=== PATIENT | male | born 1975 | race Caucasian/White ===

== ENCOUNTER → 2016-12-21 | Outpatient (CLI) | payer BC ==
[~2016-12-21] MED LIST: LORA10TA44 PO; PARO1TAB27 PO
== END | disposition home or self-care (01) ==
LOC: C.PATHSPEC 18:00
PROVIDERS: ATTEND Urology
DX: Z30.2 Encounter for sterilization (principal)

== ENCOUNTER → 2017-06-01 | Outpatient (CLI) | payer BC ==
[~2017-06-01] MED LIST changes: +OPTIRAY 320 IV PRN
--- NOTE | 2017-06-01 15:13 | DIAGNOSTIC IMAGING REPORT ---
SOFT TISSUE NECK WITH HISTORY:42 [id number] Mass of right side of neck . This is a follow-up exam. COMPARISON: Soft tissue neck CT 01/25/2014 TECHNIQUE: Multiple axial CT images of the soft tissues of the neck were obtained following the intravenous administration of 93 mL Optiray 320. FINDINGS: There is mild enlargement of the adenoid tonsils. Multiple prominent tonsillar crypts are seen within the moderately enlarged palatine tonsils. These changes cause moderate narrowing of the oropharynx. No drainable collection or mass is identified. The epiglottis and pericolonic fat appears normal. The vocal cords are symmetric. Note is made of a multinodular thyroid enhancing lesion of the left thyroid measuring 2.0 x 2.1 cm. This appears to have enlarged from prior exam. There are multiple prominent and enlarged cervical chain lymph nodes bilaterally with level 2 lymph node on the right measuring up to 2.4 x 1.7 cm on image 64 of the axial series. Supraclavicular adenopathy on the right is seen measuring 2.0 x 1.4 cm and the left measuring 1.7 x 1.4 cm. Additional nodes are seen extending into the superior mediastinum pretracheal space measuring up to 2.0 x 1.7 cm. The parotid, sublingual and submandibular glands appear normal. The region intracranial structures appear unremarkable. The imaged upper lung baird are clear. 9 x 6 mm sclerotic focus of the T1 vertebral segment is unchanged suggesting degenerative changes. IMPRESSION: 1. Bilateral cervical chain, supraclavicular and upper mediastinal adenopathy is new from prior exam and is nonspecific. These appear abnormally enlarged for normal physiologic changes and metastatic disease or lymphoproliferative disorder would be differential considerations. Close follow-up and possible tissue sampling recommended. 2. Multinodular thyroid with enlarging enhancing left thyroid nodule measuring up to 2.1 cm. Further evaluation with dedicated thyroid ultrasound is advised. 3. Adenoid and palatine tonsillar enlargement causes moderate narrowing of the oropharynx. No focal mass or drainable peritonsillar collection. The above report was generated using voice recognition software. It may contain grammatical, syntax or spelling errors. Electronically signed by: James Neves M.D. 06/01/2017 3:12 PM Dictated Date/Time: 06/01/2017 3:00 PM
== END | disposition home or self-care (01) ==
LOC: C.CTS 14:43
PROVIDERS: ATTEND Physician Assistant Medical
DX: R22.1 Localized swelling, mass and lump, neck (principal)

== ENCOUNTER → 2017-06-07 | Outpatient (CLI) | payer BC ==
[~2017-06-07] MED LIST changes: -OPTIRAY 320 IV PRN
[2017-06-07 16:25] LABS: BASO % 0.4 %; BASO ABS # 0.03 K/uL (0-0.2); EOS % 4.9 %; HEMATOCRIT 41.3 % (42-52); IG% 0.2 %; LYMPH ABS # 2.67 K/uL (1.2-3.4); MEAN CELL VOLUME 82.1 fL (80-100); MEAN CORPUSCULAR HEMOGLOBIN 27.4 pg (25-34); MEAN CORPUSCULAR HGB CONC 33.4 g/dl (32-36); MONO % 6.2 %; NEUT % 55.3 %; PLATELET COUNT 263 K/uL (130-400); RED BLOOD COUNT 5.03 M/uL (4.7-6.1); WHITE BLOOD COUNT 8.09 K/uL (4.8-10.8)
[2017-06-07 16:35] LABS: ALT/SGPT 37 U/L (12-78); BLOOD UREA NITROGEN 14 mg/dl (7-18); BUN/CREATININE RATIO 14.9 (10-20); CALCIUM 8.7 mg/dl (8.5-10.1); CARBON DIOXIDE 26 mmol/L (21-32); CHLORIDE 107 mmol/L (98-107); CREATININE 0.91 mg/dl (0.60-1.40); GLUCOSE 92 mg/dl (70-99); POTASSIUM 3.7 mmol/L (3.5-5.1); SODIUM 139 mmol/L (136-145)
[2017-06-07 16:45] LABS: ALB/GLOB RATIO 0.9 (0.9-2); ALKALINE PHOSPHATASE 63 U/L (45-117); AST/SGOT 23 U/L (15-37)
[2017-06-08 14:16] LABS: COMPLETE YES
== END | disposition home or self-care (01) ==
LOC: C.LABBFT 16:33
PROVIDERS: ATTEND Physician Assistant Medical
DX: R59.0 Localized enlarged lymph nodes (principal)

== ENCOUNTER → 2017-06-08 | Outpatient (CLI) | payer BC ==
--- NOTE | 2017-06-08 14:20 | DIAGNOSTIC IMAGING REPORT ---
ULTRASOUND GUIDED FINE NEEDLE ASPIRATION OF BILATERAL THYROID NODULES AND RIGHT LEVEL 2 CERVICAL LYMPH NODE CLINICAL HISTORY: Thyroid nodules and cervical lymphadenopathy. COMPARISON STUDY: Neck CT June 01, 2017 and thyroid and neck ultrasound June 08, 2017. PROCEDURE: Sonography of the thyroid gland demonstrated an ill-defined 2.5 cm hypoechoic right lobe nodule with suspected microcalcifications. Note was made of a well-circumscribed 2.5 cm left lobe nodule. In addition, there were multiple pathologically enlarged cervical lymph nodes within index right level 2 lymph node measuring 2.6 cm. These 2 thyroid nodules and the right level 2 lymph node were targeted for fine needle aspiration. The procedure, risks and benefits were discussed with the patient and informed written consent was obtained. The procedure was performed by Dr. Henning following a timeout. Skin of the neck was prepped and draped in sterile fashion and local anesthesia was achieved with 1% lidocaine. Under direct ultrasound guidance, two 25-gauge fine needle aspirations were performed in each thyroid nodule as well as one 25-gauge fine needle aspiration of the right level 2 cervical lymph node. The samples were deemed preliminarily adequate by pathology. The patient tolerated the procedure well and no immediate complications were evident. IMPRESSION: Ultrasound guided fine needle aspiration of bilateral thyroid nodules and right level 2 cervical lymph node. Electronically signed by: Jairo Henning M.D. 06/08/2017 2:18 PM Dictated Date/Time: 06/08/2017 2:15 PM
--- NOTE | 2017-06-08 14:21 | DIAGNOSTIC IMAGING REPORT ---
SOFT TISSUE HEAD/NECK-THYROID CLINICAL HISTORY: 42 years-old Male with MULTINODULAR THYROID. COMPARISON: CT neck 06/01/2007 TECHNIQUE: Multiple real time sonographic images of the thyroid were obtained accessing stephens scale appearance and color doppler flow. FINDINGS: MEASUREMENTS: Right lobe: 5.5 x 2.4 x 2.4 cm Left lobe: 5.0 x 2.4 x 2.4 cm Isthmus: 1.06 cm PARENCHYMA: The thyroid parenchymal echotexture is diffusely heterogeneous. NODULES: There is a heterogeneous mass with areas of decreased echogenicity and lobulated poorly defined margins in the mid right thyroid lobe, 1.5 x 2.3 x 1.8 cm with nonshadowing areas of increased echogenicity suggesting microcalcifications. No significant increased vascularity is seen within this nodule. Circumscribed slightly hypoechoic and homogeneous nodule of the mid left thyroid with areas of internal vascularity measures 2.7 x 1.9 x 1.7 cm. Multiple enlarged lymph nodes are seen within the neck. On the right, the largest lymph node is seen measuring 3.0 x 1.4 x 2.6 cm. Largest on the left measures 2.7 x 1.4 x 1.6 cm. IMPRESSION: 1. Multinodular thyroid with suspicious nodule of the mid pole right thyroid lobe measuring 2.3 cm. 2. Hypoechoic homogeneous and circumscribed nodule of the mid left thyroid measures 2.7 cm. 3. Enlarged bilateral cervical chain adenopathy. Please see pathology results from ultrasound-guided FNA of same day. The above report was generated using voice recognition software. It may contain grammatical, syntax or spelling errors. Electronically signed by: James Neves M.D. 06/08/2017 2:20 PM Dictated Date/Time: 06/08/2017 2:10 PM
== END | disposition home or self-care (01) ==
LOC: C.ULTR 12:12
PROVIDERS: ATTEND Physician Assistant Medical
DX: C73 Malignant neoplasm of thyroid gland (principal); C77.0 Secondary and unspecified malignant neoplasm of lymph nodes of head, face and neck; E04.2 Nontoxic multinodular goiter

== ENCOUNTER → 2018-01-17 | Outpatient (CLI) | payer BC | END | disposition home or self-care (01) | LOC: C.LABPVFM 10:13 | PROVIDERS: ATTEND Psychiatry & Neurology Psychiatry | DX: Z79.899 Other long term (current) drug therapy (principal) ==

== ENCOUNTER → 2018-01-18 | Outpatient (CLI) | payer BC | END | disposition home or self-care (01) | LOC: C.LABSPEC 10:10 | PROVIDERS: ATTEND Physician Assistant Medical | DX: J02.9 Acute pharyngitis, unspecified (principal) ==

== ENCOUNTER → 2018-03-11 | Outpatient (CLI) | payer BC ==
[2018-03-11 13:20] LABS: ALBUMIN 3.5 gm/dl (3.4-5.0); ALT/SGPT 29 U/L (12-78); AST/SGOT 18 U/L (15-37); BLOOD UREA NITROGEN 11 mg/dl (7-18); CALCIUM 7.7 mg/dl (8.5-10.1); CARBON DIOXIDE 28 mmol/L (21-32); CHOLESTEROL 189 mg/dl (0-200); CREATININE 0.77 mg/dl (0.60-1.40); GLUCOSE 89 mg/dl (70-99); POTASSIUM 3.4 mmol/L (3.5-5.1); SODIUM 138 mmol/L (136-145)
[2018-03-11 13:30] LABS: ALKALINE PHOSPHATASE 77 U/L (45-117); LDL CHOLESTEROL CALCULATED 136 mg/dl; TOTAL PROTEIN 7.9 gm/dl (6.4-8.2)
== END | disposition home or self-care (01) ==
LOC: C.LABPVFM 08:56
PROVIDERS: ATTEND Family Medicine
DX: E78.5 Hyperlipidemia, unspecified (principal)

== ENCOUNTER → 2018-03-29 | Outpatient (CLI) | payer BC ==
[~2018-03-29] MED LIST changes: +NURSING VERBAL MED ORDER ONE; +OPTIRAY 320 IV PRN
--- NOTE | 2018-03-29 08:57 | DIAGNOSTIC IMAGING REPORT ---
SOFT TISSUE NECK WITH CLINICAL HISTORY: 42 years-old Male presenting with HYPERLIPIDEMIA, cystic mass in the region of right neck surgery, history of thyroid cancer. TECHNIQUE: Multidetector CT of the neck was performed after the administration of intravenous contrast. IV contrast: 93 mL of Optiray 320. A dose lowering technique was used consistent with the principles of ALARA (as low as reasonably achievable). COMPARISON: 06/01/2017. CT DOSE (mGy.cm): The estimated cumulative dose is 547.20 mGy.cm. FINDINGS: Health Facilities Surveyor topogram: Unremarkable. Postsurgical changes of thyroidectomy and bilateral cervical lymph node dissection. In the right level 4 cervical region, there is an ovoid 2.1 cm thin-walled fluid collection immediately posterior to the sternocleidomastoid. No lymphadenopathy. Subcentimeter lymph nodes noted in the right supraclavicular fossa (series 3 image 347). No additional fluid collection or soft tissue abnormality along the bilateral neck incision sites. Vasculature patent. Mild mucosal thickening in the right sphenoid sinus. Paranasal sinuses and mastoid air cells otherwise clear. Orbits normal. Limited intracranial evaluation within normal limits. No suspicious nodularity along the airway. Lung apices clear. Osseous structures within normal limits. IMPRESSION: 1. 2.1 cm fluid collection in the right level 4 cervical region, which is most suggestive of a seroma. This is felt unlikely represent necrotic lymph node given the thin wall and previously noted hyperenhancing solid lymphadenopathy. 2. Post surgical changes of bilateral lymph node dissection and thyroidectomy. No pathologically enlarged or suspicious lymph nodes. Electronically signed by: Rickie Tran M.D. 03/29/2018 8:55 AM Dictated Date/Time: 03/29/2018 8:45 AM
== END | disposition home or self-care (01) ==
LOC: C.CTS 07:50
PROVIDERS: ATTEND Family Medicine
DX: R22.1 Localized swelling, mass and lump, neck (principal); E78.5 Hyperlipidemia, unspecified; Z85.850 Personal history of malignant neoplasm of thyroid

== ENCOUNTER → 2018-06-05 | Outpatient (CLI) | payer BC ==
[~2018-06-05] MED LIST changes: -NURSING VERBAL MED ORDER ONE; -OPTIRAY 320 IV PRN
[2018-06-05 13:15] LABS: ALBUMIN 3.4 gm/dl (3.4-5.0); ALKALINE PHOSPHATASE 69 U/L (45-117); ALT/SGPT 62 U/L (12-78); AST/SGOT 36 U/L (15-37); BLOOD UREA NITROGEN 9 mg/dl (7-18); CALCIUM 8.2 mg/dl (8.5-10.1); CARBON DIOXIDE 28 mmol/L (21-32); CHOLESTEROL 233 mg/dl (0-200); CREATININE 0.79 mg/dl (0.60-1.40); GLUCOSE 87 mg/dl (70-99); LDL CHOLESTEROL CALCULATED 156 mg/dl; POTASSIUM 3.6 mmol/L (3.5-5.1); SODIUM 140 mmol/L (136-145); TOTAL PROTEIN 7.5 gm/dl (6.4-8.2)
== END | disposition home or self-care (01) ==
LOC: C.LABPVFM 07:01
PROVIDERS: ATTEND Family Medicine
DX: C73 Malignant neoplasm of thyroid gland (principal)

== ENCOUNTER → 2018-06-12 | Outpatient (CLI) | payer BC ==
--- NOTE | 2018-06-12 13:33 | DIAGNOSTIC IMAGING REPORT ---
PET/CT SKULL-THIGH HISTORY: Thyroid carcinoma THYROID CANCER TECHNIQUE: PET/CT was performed from the base of the skull through the pelvis following the intravenous administration of 14.8 mCi of F18-FDG. Non-contrast CT imaging was performed over the same range without breath-hold for attenuation correction of PET images and anatomic correlation, but not for primary interpretation as it is not of standard diagnostic quality. CT DOSE: COMPARISON: CT soft tissue neck 03/29/2018 FINDINGS: HEAD AND NECK: Operative changes consistent with a bilateral cervical lymph node dissection and thyroidectomy. 2 cm metabolically active somewhat poorly defined nodule posterior to the medial head right clavicle. This has a SUV characteristics of 7. Remainder the soft tissue neck is unremarkable. CHEST: There is no FDG-avid disease in the chest. There is no axillary, mediastinal, or hilar lymphadenopathy. There is no pleural or pericardial effusion. There is no air-space disease or suspicious lung nodule. ABDOMEN/PELVIS: Below the diaphragm, tracer is distributed physiologically in the gastrointestinal and genitourinary tracts. There is no significant lymphadenopathy and no FDG-avid disease. MUSCULOSKELETAL: There is no FDG-avid or destructive bone lesion. IMPRESSION: 1. 2 cm metabolically active node/nodule immediately posterior to the medial aspect of the right clavicular head. 2. A metastatic focus is considered.. 3. Operative changes consistent with a prior thyroidectomy and lymph node dissection the soft tissue neck. 4. Remainder the PET scan is negative. The above report was generated using voice recognition software. It may contain grammatical, syntax or spelling errors. Electronically signed by: Miguel Angel Hicks M.D. 06/12/2018 1:31 PM Dictated Date/Time: 06/12/2018 1:22 PM
== END | disposition home or self-care (01) ==
LOC: C.PET 11:00
PROVIDERS: ATTEND Internal Medicine Endocrinology, Diabetes & Metabolism
DX: C73 Malignant neoplasm of thyroid gland (principal); C79.89 Secondary malignant neoplasm of other specified sites

== ENCOUNTER 2023-07-24 05:51 | Observation (INO) ==
--- NOTE | 2023-07-03 16:20 | PAT Medication Instructions ---
Medication Instructions Date of Service July 03, 2023 Home Medications Medication Instructions Recorded Auto Titrating CPAP See Rx Instructions .Route 08/11/21 .COMPLEX #1 ea atorvastatin 40 mg tablet 40 mg PO HS #90 tabs 04/02/23 aspirin 81 mg tablet,delayed release (Viktor Low Dose Aspirin) 81 mg PO HS calcium carbonate 600 mg-vitamin D3 5 mcg (200 unit) tablet (Calcium 600 + D(3)) 1 tab PO BID fluticasone propionate 50 mcg/actuation nasal spray,suspension (Flonase Allergy Relief) 2 spray intranasal DAILY PRN Allergy Symptoms zinc 50 mg tablet 50 mg PO QAM levothyroxine 150 mcg tablet 150 mcg PO QAM cholecalciferol (vitamin D3) 25 mcg (1,000 unit) capsule 25 mcg PO QPM sertraline 100 mg tablet 300 mg PO HS atorvastatin 40 mg tablet 40 mg PO HS buspirone 30 mg tablet 30 mg PO BID ASK your prescriber and surgeon aspirin 81 mg tablet,delayed release (Viktor Low Dose Aspirin) 81 mg PO HS DO NOT take the morning of surgery calcium carbonate 600 mg-vitamin D3 5 mcg (200 unit) tablet (Calcium 600 + D(3)) 1 tab PO BID zinc 50 mg tablet 50 mg PO QAM Take morning of surgery With a small sip of water, OTHERWISE NOTHING TO EAT OR DRINK AFTER MIDNIGHT: fluticasone propionate 50 mcg/actuation nasal spray,suspension (Flonase Allergy Relief) 2 spray intranasal DAILY PRN Allergy Symptoms (if needed) levothyroxine 150 mcg tablet 150 mcg PO QAM buspirone 30 mg tablet 30 mg PO BID Take evening before surgery calcium carbonate 600 mg-vitamin D3 5 mcg (200 unit) tablet (Calcium 600 + D(3)) 1 tab PO BID fluticasone propionate 50 mcg/actuation nasal spray,suspension (Flonase Allergy Relief) 2 spray intranasal DAILY PRN Allergy Symptoms (if needed) cholecalciferol (vitamin D3) 25 mcg (1,000 unit) capsule 25 mcg PO QPM sertraline 100 mg tablet 300 mg PO HS atorvastatin 40 mg tablet 40 mg PO HS buspirone 30 mg tablet 30 mg PO BID Other Notes If you have any questions please call us at [phone] or [phone] or [phone] or [phone]
--- NOTE | 2023-07-06 11:45 | Anesthesiology Consultation ---
Date of Service July 06, 2023 Assessment & Plan (1) Encounter for pre-operative examination: - COVID screening: Per assessment on 07/06: No known COVID-19 positive contacts or current COVID-19 related symptoms. No recent Covid positive test result. - S/P Left cubital tunnel release (11/09/22): LMA#5 at [facility] Chart Review Chart Review: Acceptable Risk for Surgery and Patient seen in Pre Admission Testing Teaching & Discussion Pre-Anesthesia Teaching/Discussion Notes: Instructed NPO after midnight before surgery,except medications with 15 cc of water. Medication instructions provided according to the PAT guidelines. History Surgery Operation Date: 07/24/23 07:15 Proposed Procedures p C4-C5, C5-C6 Cervical Disc Arthroplasty - Matty Carrillo MD Height/Weight Height: 5 ft 9 in Weight: 97.4 kg Allergies Allergy/AdvReac Type Severity Reaction Status Date / Time Iodinated Contrast Media Allergy Mild Rash Verified 06/29/23 15:25 Medications Home Medications Medication Instructions Recorded Confirmed Last Taken aspirin 81 mg tablet,delayed 81 mg PO HS 03/30/19 06/29/23 11/05/22 19:00 release (Viktor Low Dose Aspirin) calcium carbonate 600 mg-vitamin 1 tab PO BID 03/30/19 06/29/23 11/08/22 19:00 D3 5 mcg (200 unit) tablet (Calcium 600 + D(3)) fluticasone propionate 50 2 spray intranasal DAILY PRN 03/30/19 06/29/23 09/04/22 mcg/actuation nasal Allergy Symptoms spray,suspension (Flonase Allergy Relief) Auto Titrating CPAP See Rx Instructions .Route 08/11/21 05/30/23 11/08/22 21:00 .COMPLEX #1 ea zinc 50 mg tablet 50 mg PO QAM 08/11/21 06/29/23 11/08/22 19:00 levothyroxine 150 mcg tablet 150 mcg PO QAM 08/30/22 06/29/23 11/09/22 04:00 cholecalciferol (vitamin D3) 25 25 mcg PO QPM 09/27/22 06/29/23 11/08/22 19:00 mcg (1,000 unit) capsule sertraline 100 mg tablet 300 mg PO HS 09/27/22 06/29/23 11/08/22 19:00 atorvastatin 40 mg tablet 40 mg PO HS #90 tabs 04/02/23 06/29/23 Unknown buspirone 30 mg tablet 30 mg PO BID 06/29/23 06/29/23 Unknown Past Medical History Medical History Anxiety and depression Arthritis Borderline high cholesterol History of COVID-2019, "resolved" Hx of radioactive iodine thyroid ablation Hx of thyroid cancer Hypothyroidism OCD (obsessive compulsive disorder) Sleep apnea CPAP (compliant) Exercise / Class Metabolic Activity II 4-5 Yardwork/Stairs/Walk up hill Past Family History Family History Mother Ovarian cancer Family history of diabetes mellitus Other No family history of adverse response to anesthesia Denies family history of Prostate cancer Myocardial infarction Breast cancer Colorectal cancer Past Surgical History Surgical History History of anesthesia reaction woke up combative with one procedure History of carpal tunnel surgery right History of cholecystectomy History of colonoscopy History of thyroidectomy, total Hx of vasectomy S/P cubital tunnel release Left cubital tunnel release (11/09/22): LMA#5 at [facility] [place] teeth removed Past Anesthesia History No Family Hx of Anesthesia Complications and Other (woke up combative with one procedure, no similar issues with other surgeries/anesthesia) History of PONV No Hx of PONV and Hx of Motion Sickness (Mild) Social History Smoking Status: Former smoker tobacco type: cigarettes Do You Dip or Chew Tobacco: No Smoking End Date: At age 39 Hx Alcohol Use: Yes Alcohol type: beer alcohol intake frequency: a few times a month substance use type: does not use Review of Systems Patient denies chest pain, shortness of breath, dyspnea on exertion, fever, chills, cough, wheezing, palpitations. Physical Exam Vital Signs VITALS BP 105/71 P 59 TEMP 97.7 SP02 96%RA RESP 16 PHYSICAL Mildly decreased cervical extension range of motion. Full TMJ range of motion. TMD 4 finger breaths Mallampati Score 1 Dentition: intact Lungs: clear throughout to auscultation Cardiac: regular rate and rhythm, no murmurs noted Spine: normal Carotid arteries: negative bruit Extremities: no LE edema Lab Results Anesthesia Preop Results Results Anesthesia Widget: WBC 7.94 K/ul (4.8-10.8) 07/06/23 Hgb 14.0 g/dl (14.0-18.0) 07/06/23 Hct 41.9 % (42.0-52.0) L 07/06/23 Plt 221 K/uL (130-400) 07/06/23 Na 140 mmol/L (136-145) 07/06/23 K 3.9 mmol/L (3.5-5.1) 07/06/23 Cl 105 mmol/L (98-107) 07/06/23 CO2 30 mmol/L (21-32) 07/06/23 BUN 10 mg/dl (6-23) 07/06/23 Creat 0.71 mg/dl (0.6-1.4) 07/06/23 Glucose Level 87 mg/dl (70-99(Fasting)) 07/06/23 PT 10.5 Seconds (9.0-12.0) 07/06/23 PTT 26.4 Seconds (21.0-31.0) 07/06/23 INR 1.0 (0.9-1.1) 07/06/23 Blood Type A Positive 07/06/23 Antibody Screen NEGATIVE 07/06/23 Testing Electrocardiogram Date: 07/06/23 SB at 59bpm. "Otherwise normal ECG" Chest X-Ray Date: 07/06/23 FINDINGS: Cardiac mediastinal and hilar silhouettes are within normal limits. No pneumothorax, pleural effusion, airspace consolidation or pulmonary edema. Bones appear grossly intact. Surgical clips project over the neck and right upper abdomen. IMPRESSION: No acute process.
[2023-07-24] MEDS ORDERED: ceFAZolin 2000MG 2,000 MG/15 ML SYR IV SCH (06:00)
[2023-07-24] MEDS ORDERED: LR 15ML/HR IV SCH (06:00)
[2023-07-24] MEDS ORDERED: LR 60ML/HR IV SCH (06:00)
[2023-07-24] MEDS ORDERED: GELATIN SPONGE 12-7MM ONE (06:41)
[2023-07-24] MEDS ORDERED: THROMBIN 5000 UNITS KIT ONE ×2 (06:41→08:40)
[2023-07-24] MEDS ORDERED: VANCOMYCIN HCL 1000MG/20ML VIAL ONE (06:41)
[2023-07-24] MEDS ORDERED: SUCCINYLCHOLINE CHLORIDE 20 MG/ML 10 ML VIAL IV ONE (06:55)
[2023-07-24] MEDS ORDERED: fentaNYL citrate PF 100 MCG/2 ML VIAL ONE ×4 (06:55→12:57)
[2023-07-24] MEDS ORDERED: MIDAZOLAM HCL 1 MG/ML 2ML VIAL ONE (06:55)
[2023-07-24] MEDS ORDERED: LIDOCAINE 2% 2 ML VIAL/AMP(20MG/ML) INFIL ONE (06:55)
[2023-07-24] MEDS ORDERED: ROCURONIUM BROMIDE 10 MG/ML 5 ML VIAL IV ONE (06:55)
[2023-07-24] MEDS ORDERED: PROPOFOL IV EMULSION 10 MG/ML 20 ML VIAL IV ONE (06:55)
--- NOTE | 2023-07-24 07:14 | History & Physical Bridge Note ---
Date of Service July 24, 2023 History & Physical Bridge Note I have examined the patient, reviewed the History & Physical and in the interval since the performance of the History & Physical I have noted the following changes of clinical significance: no changes noted
[2023-07-24] MEDS ORDERED: ONDANSETRON INJ 2 MG/ML 2 ML VIAL IV PRN ×2 (07:17→14:31)
[2023-07-24] MEDS ORDERED: fentaNYL citrate PF 100 MCG/2 ML VIAL IV PRN (07:17)
[2023-07-24] MEDS ORDERED: ePHEDrine sulfate 50 MG/ML AMP IV PRN (07:17)
[2023-07-24] MEDS ORDERED: ATROPINE SULFATE 0.1 MG/ML 10ML SYR IV PRN (07:17)
[2023-07-24] MEDS ORDERED: PROMETHAZINE HCL 6.25 MG in SODIUM CHLORIDE 0.9% 50 ML IV PRN (07:17)
[2023-07-24] MEDS ORDERED: ePHEDrine sulfate 50 MG/5 ML SYR ONE (08:06)
[2023-07-24] MEDS ORDERED: GLYCOPYRROLATE 0.2 MG/ML VIAL ONE (10:23)
[2023-07-24] MEDS ORDERED: NEOSTIGMINE METHYLSULFATE 1 MG/ML 10ML VIAL ONE (10:23)
[2023-07-24] MEDS ORDERED: FLOSEAL HEMOSTATIC MATRIX 5ML TOP ONE (11:17)
[2023-07-24] MEDS ORDERED: ceFAZolin 330 MG/ML 1 GM VIAL ONE (11:42)
--- NOTE | 2023-07-24 13:07 | Post Operative Brief Note ---
PG Immediate Post Op with CF Date of Surgery July 24, 2023 Pre & Post Diagnosis Operation Date: 07/24/23 07:30 Pre-Op Diagnosis: Degeneration of C4-C5, C5-C6 intervertebral disc, cervical radiculopathy C5 and C6 Post-Op Diagnosis: Degeneration of C4-C5, C5-C6 intervertebral disc, cervical radiculopathy C5 and C6 I identified the patient and participated in the time-out.: Yes Procedure Operation Date: 07/24/23 07:30 Actual Procedures p C4-C5, C5-C6 Cervical Disc Arthroplasty(Not Applicable) - Matty Carrillo MD Surgeon Matty Carrillo MD Cardiovascular Or Nurse none Estimated Blood Loss 30 Findings Consistent with Post-Op Diagnosis Specimens Specimen Description: no specimen Drains Michaud Catheter (inserted on 1st attempt without difficulty, return urine noted in tubing prior to inflating balloon)
--- NOTE | 2023-07-24 13:55 | Fluoroscopy Report ---
FL cervical 2-3V CLINICAL HISTORY: ACDF C4-C6 COMPARISON STUDY: MRI cervical spine 06/05/2023 FLUOROSCOPY TIME: 1 minute and 16.5 seconds FLUOROSCOPY IMAGES: 11 EXPOSURE DOSE: 29.082 mGy FINDINGS: Endotracheal tube is noted. Numerous surgical clips project over the neck soft tissues. And intervertebral disc spacers are placed at the C4-C5 and C5-C6 levels. Alignment appears satisfactory . No unexpected opaque foreign bodies identified. IMPRESSION: Fluoroscopic assistance as above. ACT 112: Negative or not required by law. Electronically signed by: Neno Neves M.D. 07/24/2023 1:53 PM
[2023-07-24] MEDS ORDERED: LACTATED RINGER'S 1,000 ML IV SCH (14:31)
[2023-07-24] MEDS ORDERED: PROMETHAZINE HCL 12.5 MG in SODIUM CHLORIDE 0.9% 50 ML IV PRN (14:31)
[2023-07-24] MEDS ORDERED: ALUMINUM/MAGNESIUM SUSP 30 ML UDC PO PRN (14:31)
[2023-07-24] MEDS ORDERED: DO NOT ADMINISTER FLU VACCINE PRN (14:31)
[2023-07-24] MEDS ORDERED: oxyCODONE/ACETAMINOPHEN 5mg/325mg TAB PO PRN (14:31)
[2023-07-24] MEDS ORDERED: ACETAMINOPHEN 1,000 MG/100 ML VIAL IV PRN (14:31)
[2023-07-24] MEDS ORDERED: hydrOXYzine HCl 25 MG TAB PO PRN (14:31)
[2023-07-24] MEDS ORDERED: DO NOT ADMINISTER PNEUMOCOCCAL VACCINE PRN (14:31)
[2023-07-24] MEDS ORDERED: NALOXONE HCL 0.4 MG/1 ML VIAL/CARP IV PRN (14:31)
[2023-07-24] MEDS ORDERED: LORazepam 2 MG/1 ML VIAL IV PRN (14:31)
[2023-07-24] MEDS ORDERED: SOD PHOSPHATE/SOD BIPHOSPHATE ENEMA 132 ML BTL PR PRN (14:31)
[2023-07-24] MEDS ORDERED: LORazepam 0.5 MG TAB PO PRN (14:31)
[2023-07-24] MEDS ORDERED: bisacodyL 10 MG SUPP PR PRN (14:31)
[2023-07-24] MEDS ORDERED: FAMOTIDINE 20 MG TAB PO PRN (14:31)
[2023-07-24] MEDS ORDERED: RACEPINEPHRINE 2.25% NEBU SOLN 0.5 ML VIAL INH PRN (14:31)
[2023-07-24] MEDS ORDERED: METOCLOPRAMIDE HCL INJ 5 MG/ML 2 ML VIAL IV PRN (14:31)
[2023-07-24] MEDS ORDERED: ACETAMINOPHEN 500 MG TAB PO PRN (14:31)
[2023-07-24] MEDS ORDERED: HYDROmorphone INJ 0.5 MG/0.5 ML SYR IV PRN (14:31)
[2023-07-24] MEDS ORDERED: MAGNESIUM HYDROXIDE SUSP 30 ML UDC PO PRN (14:31)
[2023-07-24] MEDS ORDERED: ONDANSETRON 4 MG OD TAB PO PRN (14:31)
[2023-07-24] MEDS ORDERED: diphenhydrAMINE Capsule 25 MG CAP PO PRN (14:31)
[2023-07-24] MEDS ORDERED: dexAMETHasone 8 MG in SYRINGE 0 ML IV PRN (14:31)
--- NOTE | 2023-07-24 14:44 | Anesthesiology Progress Note ---
Date of Service July 24, 2023 Anesthesia Post Procedure Vital Signs Vital Signs: Temp Pulse Pulse Resp BP Pulse Ox Pulse Ox 07/24/23 14:38 97 07/24/23 14:32 36.6 C 89 14 112/69 97 07/24/23 14:00 99 H 16 123/64 98 07/24/23 13:40 102 H 17 132/71 94 07/24/23 13:30 100 H 16 115/66 94 07/24/23 13:20 100 H 16 102/66 94 07/24/23 14:10 37 C 97 H 18 128/62 98 07/24/23 13:50 113 H 17 143/55 H 99 07/24/23 13:10 101 H 18 112/59 L 94 07/24/23 13:03 37 C 99 H 12 108/60 94 07/24/23 06:31 36.7 C 69 18 119/76 95 O2 Del Method O2 Del Method O2 Flow Rate 07/24/23 14:38 Nasal Cannula 07/24/23 14:32 Nasal Cannula 2 07/24/23 14:00 Oxymask 2 07/24/23 13:40 Oxymask 15 07/24/23 13:30 Oxymask 15 07/24/23 13:20 Oxymask 15 07/24/23 14:10 Oxymask 2 07/24/23 13:50 Oxymask 4 07/24/23 13:10 Oxymask 11 07/24/23 13:03 Oxymask 11 07/24/23 06:31 Room Air Transfer of Care Handoff Completed per policy Notes Mental Status: alert / awake / arousable Patient Amnestic to Procedure: Yes Nausea / Vomiting: adequately controlled Pain: adequately controlled Airway Patency, RR, SpO2: stable & adequate BP & HR: stable & adequate Hydration State: stable & adequate Anesthetic Complications: no major complications apparent
[2023-07-24] MEDS: KETOROLAC 30 MG/ML VIAL IV SCH ×2 (15:26→21:36)
[2023-07-24] MEDS: ceFAZolin 1000MG 1,000 MG/7.5 ML SYR IV SCH (19:40)
[2023-07-24] MEDS: busPIRone 15 MG TAB PO SCH (19:41)
[2023-07-24] MEDS ORDERED: SERTRALINE HCL 100 MG TABLET PO SCH (21:00)
[2023-07-24] MEDS ORDERED: DOCUSATE SODIUM/SENNA 50/8.6MG TAB PO SCH (21:00)
[2023-07-24] MEDS ORDERED: COUGH DROP (SUGAR FREE) LOZ 24 LOZ/1 BOX BUCCAL ONE (21:48)
[2023-07-25] MEDS: KETOROLAC 30 MG/ML VIAL IV SCH ×2 (03:38→08:13)
[2023-07-25] MEDS: ceFAZolin 1000MG 1,000 MG/7.5 ML SYR IV SCH (03:38)
[2023-07-25] MEDS: POLYETHYLENE (MIRALAX) 17 GM PACK PO SCH ×2 (06:02→11:58)
[2023-07-25] MEDS ORDERED: LEVOTHYROXINE SODIUM 150 MCG TABLET PO SCH (06:30)
[2023-07-25 07:17] LABS: Basophils # (auto) 0.04 K/uL (0.00-0.20); Basophils % (auto) 0.3 %; Eosinophils # (auto) 0.04 K/uL (0.00-0.50); Eosinophils % (auto) 0.3 %; Hematocrit (blood only) 40.2 % (42.0-52.0); Hemoglobin 13.1 g/dl (14.0-18.0); Immature Granulocytes # (auto) 0.04 K/uL (0.01-0.20); Immature Granulocytes % (auto) 0.3 %; Lymphocytes # (auto) 3.12 K/uL (1.20-3.40); Lymphocytes % (auto) 23.2 %; Mean Corpuscular Hemoglobin 27.3 pg (25.0-34.0); Mean Corpuscular Hgb Conc 32.6 g/dL (32.0-36.0); Mean Corpuscular Volume 83.9 fL (80.0-100.0); Mean Platelet Volume 10.3 fL (9.4-12.4); Monocytes # (auto) 0.96 K/uL (0.11-0.59); Monocytes % (auto) 7.2 %; Neutrophils # (auto) 9.22 K/uL (1.40-6.50); Neutrophils % (auto) 68.7 %; Platelet Count 215 K/uL (130-400); RDW Coefficient of Variation 14.6 % (11.5-14.5); RDW Standard Deviation 44.5 fL (36.4-46.3); Red Blood Count 4.79 M/uL (4.70-6.10); White Blood Count 13.42 K/ul (4.8-10.8)
[2023-07-25 07:40] LABS: BUN Creatinine Ratio 13.9 (10-20); Calcium 8.1 mg/dl (8.6-10.3); Creatinine Clr Calc Pharmacy 131.1 ml/min; Est GFR (African American) 123.1 ml/min; Est GFR (Non-African American) 106.2 ml/min; Potassium 3.6 mmol/L (3.5-5.1)
[2023-07-25] MEDS: busPIRone 15 MG TAB PO SCH (08:12)
--- NOTE | 2023-07-25 08:21 | Hospitalist Consultation ---
Date of Consultation July 25, 2023 Assessment & Plan (1) Cervical stenosis of spine: POD#1 s/p C4-C5, C5-C6 Cervical Disc Arthroplasty(Not Applicable) - Matty Carrillo MD EBL 30cc WBC elevation likely 2nd to steroids, afebrile. Hgb 14--> 13.1, acute blood loss anemia from surgery, dilutional aspect from IVF Pain control/bowel regimen/PT/OT per primary service Patient reports anticipating discharge today. Dressed in bed, at bedside. (2) Hypothyroidism: continue Synthroid 150mcg (3) Sleep apnea: CPAP HS -- to discuss w/ primary if ok to resume at dc given cervical surgery as above (4) Anxiety: chronic, hx anxiety/depression, OCD continue sertraline, Buspar BID (5) Depression: continue sertraline, buspar BID Plan Thank you for allowing hospitalist service to participate in the care of Mr Posey. Hospitalist service will sign off at this time. Please call with any questions/concerns. Supervising Physician Co-Signing Physician Notes The patient was seen by me. The chart was reviewed. Case discussed with MANOJ Carrillo. Agree with assessment and plan History of Present Illness Reason for Consultation: medical management Requesting Physician: Dr Carrillo Attending Physician: Matty Carrillo MD History of Present Illness 48yo male with PMHx significant for hypothyroidism, anxiety/depression, sleep apnea presented for C4-C5, C5-C6 cervical disc arthroplasty with Dr Carrillo on 07/24. EBL 30cc Evaluated in 319, at bedside. Dressed and ready to go home. States was seen by orthopedic surgeon this morning, anticipating discharge. Discussed clarifying with him about resuming CPAP tonight vs waiting a night due to swelling. Some soreness to throat but not having difficulty tolerating diet at present.No shortness of breath/stridor/chest pain/fever/chills. Questions/concerns addressed at this time. Allergies Allergy/AdvReac Type Severity Reaction Status Date / Time Iodinated Contrast Media Allergy Mild Rash Verified 07/24/23 06:04 Home Medications Medication Instructions Recorded Confirmed Type aspirin 81 mg tablet,delayed 81 mg PO HS 03/30/19 07/24/23 History release (Viktor Low Dose Aspirin) calcium carbonate 600 mg-vitamin 1 tab PO BID 03/30/19 07/24/23 History D3 5 mcg (200 unit) tablet (Calcium 600 + D(3)) fluticasone propionate 50 2 spray intranasal DAILY PRN 03/30/19 07/24/23 History mcg/actuation nasal Allergy Symptoms spray,suspension (Flonase Allergy Relief) Auto Titrating CPAP See Rx Instructions .Route 08/11/21 07/24/23 Rx .COMPLEX #1 ea zinc 50 mg tablet 50 mg PO QAM 08/11/21 07/24/23 History levothyroxine 150 mcg tablet 150 mcg PO QAM 08/30/22 07/24/23 History cholecalciferol (vitamin D3) 25 25 mcg PO QPM 09/27/22 07/24/23 History mcg (1,000 unit) capsule sertraline 100 mg tablet 300 mg PO HS 09/27/22 07/24/23 History atorvastatin 40 mg tablet 40 mg PO HS #90 tabs 04/02/23 07/24/23 Rx buspirone 30 mg tablet 30 mg PO BID 06/29/23 07/24/23 History hydrocodone 5 mg-acetaminophen 325 1 tab PO Q6H PRN pain #30 tabs 07/25/23 Rx mg tablet Patient History Medical History Anxiety and depression Arthritis Borderline high cholesterol History of COVID-19 2019, "resolved" Hx of radioactive iodine thyroid ablation Hx of thyroid cancer Hypothyroidism OCD (obsessive compulsive disorder) Sleep apnea CPAP (compliant) Surgical History History of anesthesia reaction woke up combative with one procedure History of carpal tunnel surgery right History of cholecystectomy History of colonoscopy History of thyroidectomy, total Hx of vasectomy S/P cubital tunnel release Left cubital tunnel release (11/09/22): LMA#5 at [facility] Hector teeth removed Family History Mother Ovarian cancer Family history of diabetes mellitus Other No family history of adverse response to anesthesia Denies family history of Prostate cancer Myocardial infarction Breast cancer Colorectal cancer Social History Smoking Status: Former smoker Second Hand Exposure: No; Do You Dip or Chew Tobacco: No; Hx Alcohol Use: Yes Alcohol type: beer Alcohol Intake Frequency: Monthly or Less Preferred Language: Tunisian Communication Ability: Effective Visual Impairment: Limited Hearing Ability: Normal Auto Body Technician Required: No Beliefs That Will Affect Care: None marital status: Current Living Situation: Family current occupational status: employed current occupation: [employer] How many Children do You have: 2 Feels Safe at Home: Yes Childhood Exposure to Second-Hand Smoke: Yes Diet: regular caffeine: Yes (soda) during the past year weight has: remained stable Dental Care, Regularly: Yes Physical Activity Frequency: Daily Seatbelt Use: always Sunscreen Use: No Do you think of yourself as: straight/heterosexual Gender Identity: Male Assistive Devices: None Review of Systems Review of Systems: All systems reviewed & are unremarkable except as noted in HPI & below Physical Exam Physical Exam: General: WD/WN male sitting up in bed, NAD, at bedside HEENT; dressing to neck c/d/i, no drain, no stridor/crepitus Resp: CTA, no w/c/r, on room air CV: RRR, no significant m/r/g, no calf tenderness GI: +BS, soft/NT : no diaz MSK/Neuro: no focal deficits, strength equal throughout, no slurred speech/facial droop, answering questions appropriately Psych: AOx3, cooperative with exam Results & Data Results & Data Vital Signs (Past 12 Hours) Vital Signs Temp Pulse Resp BP Pulse Ox O2 Del Method 07/25/23 07:33 67 16 97 Room Air 07/25/23 05:52 36.5 C 67 18 123/73 96 Room Air 07/25/23 03:39 36.6 C 69 17 137/79 97 Room Air 07/25/23 03:16 72 18 96 Room Air 07/25/23 01:27 36.5 C 77 17 111/65 96 Room Air 07/24/23 23:35 36.6 C 76 16 111/68 96 Room Air 07/24/23 22:03 81 18 96 Room Air 07/24/23 21:34 36.6 C 74 16 124/73 95 Room Air Laboratory Results 07/25/23 07/25/23 Range/Units 06:48 06:48 WBC 13.42 H (4.8-10.8) K/ul RBC 4.79 (4.70-6.10) M/uL Hgb 13.1 L (14.0-18.0) g/dl Hct 40.2 L (42.0-52.0) % MCV 83.9 (80.0-100.0) fL MCH 27.3 (25.0-34.0) pg MCHC 32.6 (32.0-36.0) g/dL RDW Std Deviation 44.5 (36.4-46.3) fL RDW Coeff of Leisa 14.6 H (11.5-14.5) % Plt Count 215 (130-400) K/uL MPV 10.3 (9.4-12.4) fL Immature Gran % (Auto) 0.3 % Neut % (Auto) 68.7 % Lymph % (Auto) 23.2 % [place] % (Auto) 7.2 % Eos % (Auto) 0.3 % Baso % (Auto) 0.3 % Neut # (Auto) 9.22 H (1.40-6.50) K/uL Lymph # (Auto) 3.12 (1.20-3.40) K/uL [place] # (Auto) 0.96 H (0.11-0.59) K/uL Eos # (Auto) 0.04 (0.00-0.50) K/uL Baso # (Auto) 0.04 (0.00-0.20) K/uL Immature Gran # (Auto) 0.04 (0.01-0.20) K/uL Sodium 142 (136-145) mmol/L Potassium 3.6 (3.5-5.1) mmol/L Chloride 106 (98-107) mmol/L Carbon Dioxide 32 (21-32) mmol/L Anion Gap 4 (3-11) BUN 11 (6-23) mg/dl Creatinine 0.79 (0.6-1.4) mg/dl Est Cr Clr Drug Dosing 131.1 ml/min Est GFR ( Amer) 123.1 ml/min Est GFR (Non-Af Amer) 106.2 ml/min BUN/Creatinine Ratio 13.9 (10-20) Glucose 92 (70-99(Fasting)) mg/dl Calcium 8.1 L (8.6-10.3) mg/dl PG Care Time/CCT Total # of Minutes Spent Total Time Spent with Patient: Total time spent is greater than 50% in coordination of care (as documented) at patient's floor/unit and/or counseling patient: Coding Level of Care Code 54339 IN/OBS CONSULT LVL 3,45M Diagnoses Cervical stenosis of spine M48.02 Hypothyroidism E03.9 Sleep apnea G47.30 Anxiety F41.9 Depression F32.9
--- NOTE | 2023-07-25 10:52 | Orthopedic Progress Note ---
Date of Service July 25, 2023 Subjective . Patient awake and alert, does not note significant issue with neck pain, does feel the left arm symptoms are improved now after the surgery. Minimal if any swallowing issues. Dressing with minimal amount of drainage present, otherwise motor intact. Impression/plan: Postoperative day 1 from C4-5 and C5-6 anterior decompression and artificial disc replacement, overall doing well. We will have the patient DC home today with follow-up in 2 weeks. Instructions were given on the operative site care. Review of Systems All systems reviewed & are unremarkable except as noted in HPI & below. Physical Exam . Results & Data Results & Data Laboratory Results . Diagnostic Findings . PG Care Time/CCT Total # of Minutes Spent Total Time Spent with Patient: Total time spent is greater than 50% in coordination of care (as documented) at patient's floor/unit and/or counseling patient: Coding Level of Care Code 83747 Post Operative Follow-Up Diagnoses
--- NOTE | 2023-07-25 10:54 | Discharge Summary ---
Date of Service July 25, 2023 Principal Diagnosis Same as "Discharge Diagnosis" noted below under Discharge Instructions. Discharge Exam . Discharge Data Consultations 07/24/23 14:31 Consult Hospitalist Routine Procedures Performed Operation Date: 07/24/23 07:30 Actual Procedures p C4-C5, C5-C6 Cervical Disc Arthroplasty(Not Applicable) - Matty Carrillo MD Ordered Studies 07/24/23 07:30 FL cervical 2-3V Routine PG Care Time/CCT Total # of Minutes Spent Total Time Spent with Patient: Total time spent is greater than 50% in coordination of care (as documented) at patient's floor/unit and/or counseling patient: Discharge Plan Discharge Items Patient Disposition: Home - Self-Care Reason For Visit: Other Cervical Disc Degeneration Discharge Diagnosis: Cervical radiculopathy Activity: Per Instructions section Non-emergency contact: Surgeon Call non-emergency contact if: your pain is worsening Follow-up/Referrals: Nati Stephens MD [Primary Care Provider] - Diet: Regular Addtl Attending Provider Instructions: The no lifting beyond 20 pounds until follow-up. Pending Studies at Discharge: No Stand-Alone Forms: ZoomSafer, Smoking Cessation Medications and DC Order Prescriptions: No Action cholecalciferol (vitamin D3) 25 mcg (1,000 unit) capsule 25 mcg PO QPM Rx Instructions: takes around lunchtime. atorvastatin 40 mg tablet 40 mg PO HS Qty: 90 3RF zinc 50 mg tablet 50 mg PO QAM Patient Comments: + vitamin c Auto Titrating CPAP Misc See Rx Instructions .ROUTE .COMPLEX Qty: 1 0RF Rx Instructions: 5 to 15 cm of water, mask fit to patient comfort, heated modification, compliance download capabilities, DME of patient choice; calcium carbonate-vitamin D3 [Calcium 600 + D(3)] 600 mg(1,500mg) -200 unit Tablet 1 tab PO BID aspirin [Viktor Low Dose Aspirin] 81 mg Tablet,Delayed Release (Dr/Ec) 81 mg PO HS fluticasone propionate [Flonase Allergy Relief] 50 mcg/actuation [place],Suspension 2 spray INTRANASAL DAILY PRN (Reason: Allergy Symptoms) sertraline 100 mg tablet 300 mg PO HS buspirone 30 mg Tablet 30 mg PO BID levothyroxine 150 mcg tablet 150 mcg PO QAM Admission Data Admit Date/Time: 07/24/23 13:22 Attending Provider: Matty Carrillo Admit Provider: Matty Carrillo Primary Care Provider: Nati Stephens Other Providers: Zhou Reilly ; Anne Bob ; Thomas Neumann ; Kareem Griffiths ; Junaid Craig ; Jose J Pereyra ; Jatinder Mratino ; Samia Santos ; [place] ; Jose Guy ; Dena Dobbins ; Cristopher Elliott ; Sharee Alicia ; Ranjan Vargas ; Anne Paredes ; May Myers ; Junior Camarillo ; Thomas Fitch ; Boy Pham ; Veronica Alvarez ; Brent Lanza ; Pooja Munoz ; Jace Ellis ; Rickie Issa ; Leticia Knight ; Alea Smith ; Ko Rosales ; Maria Del Carmen Mccullough ; Denise Colon ; Kareem Ibarra ; Junaid Oneil
--- NOTE | 2023-07-26 13:55 | Operative Report ---
PG Post Operative Report Pre & Post Diagnosis Operation Date: 07/24/23 07:30 Pre-Op Diagnosis: Degeneration of C4-C5, C5-C6 intervertebral disc, cervical radiculopathy C5 and C6 Post-Op Diagnosis: Degeneration of C4-C5, C5-C6 intervertebral disc, cervical radiculopathy C5 and C6 I identified the patient and participated in the time-out.: Yes Procedure Operation Date: 07/24/23 07:30 Actual Procedures p C4-C5, C5-C6 Cervical Disc Arthroplasty(Not Applicable) - Matty Carrillo MD Mobi-C artificial disc replacement 17 x 17 x 5 mm both levels Surgeon Matty Carrillo MD Office Rep none Estimated Blood Loss 30 Findings Consistent with Post-Op Diagnosis Specimens none Description of Procedure Patient was taken the operating room and after adequate anesthesia was carefully positioned on the OSI flat top table., The anterior cervical spine underwent a preprep followed by positioning the patient and securing it for an anterior approach, C arm was brought in to trang for the approximate location of the incision. Prep was performed, and after draping began the procedure with a transverse incision between C4-5 and C5-6. It should be noted that the patient had 2 prior procedures in the same region for his thyroid, the anterior dissection was fraught with scar tissue and considerably delayed the approach by at least 1 hour until getting down to the anterior cervical spine. Once in this region, I then mobilized the soft tissues and confirmed our location. I then continued to mobilize the tissues around the tumor mentioned levels followed by then insertion of the distractor pins at C4 using fluoroscopic assistance. The second pin was placed to C5, all followed by retractors. The operative microscope was brought in and I then went ahead with incising the anterior annulus followed by performing a thorough discectomy using combination of curettes and pituitaries and continuing to process down to the back of the c ervical disc space. After completing the thorough discectomy, I then mobilized into the posterior annular region and then completed a decompression across the interspace removing a combination of spondylosis with high-speed bur and Kerrison punches, out to the uncinates on both sides completing a decompression. Once completed trials were obtained, and selected the 17 x 17 mm size 5 mm in height as the best option for this particular level. This particular device was then obtained in and tapped in position with excellent position on AP and lateral views. I then moved to the C5-6 level with removal of the distractor pin at C4, bone wax was applied, and then moving at C6 apply the distractor pins. In a similar fashion the microscope was brought in at this point I then moved ahead with the anterior decompression removing the disc material across the interspace. Posteriorly I then thinned to remove the spondylosis and then completed a decompression across the interspace. Once this was completed I went through trials selecting the same size as this appeared to be the best match for the interspace, this was a 17 x 17 x 5 mm. This point, final images were obtained, distractor pins were removed and combination of Floseal and bone wax was applied to the region followed by then final evaluation and irrigation. Vancomycin powder was placed followed by then closure using 3-0 Vicryl sutures benzoin and Steri-Strips. Sterile dressing was applied, the patient tolerated procedure well with went to recovery room in satisfactory condition. I attest to the content of the Intraoperative Record and any orders documented therein. Any exceptions are noted below.
== END 2023-07-25 13:16 | disposition home or self-care (01) ==
LOC: 3E 05:51 → ASU 05:51